=== PATIENT | female | born 1935 | race Caucasian/White ===

== ENCOUNTER 2017-12-06 07:29 | Day surgery (SDC) | payer BC, MEDICARE ==
[2017-12-03 10:50] VITALS: BMI 27.1
--- NOTE | 2017-12-06 05:22 | P.GSHP ---
History of Present Illness H&P Date: 12/06/17 CHIEF COMPLAINT: GERD HISTORY OF PRESENT ILLNESS: The patient is a 82-year-old female who presents reports gastroesophageal reflux disease. Upper endoscopy was offered for further evaluation and management. PAST MEDICAL HISTORY: Please see list. PAST SURGICAL HISTORY: Please see list. MEDICATIONS: Please see list. ALLERGIES: Please see list. SOCIAL HISTORY: No illicit drug use FAMILY HISTORY: No reports of Crohn disease or ulcerative colitis. REVIEW OF ORGAN SYSTEMS: CONSTITUTIONAL: No reports of fevers or chills. GI: Denies any blood in stools or constipation. PHYSICAL EXAM: VITAL SIGNS: Stable GENERAL: Well-developed and pleasant in no acute distress. HEENT: No scleral icterus. Extraocular movements grossly intact. Moist buccal mucosa. NECK: Supple without lymphadenopathy. CHEST: Unlabored respirations. Equal bilateral excursions. CARDIOVASCULAR: Regular rate and rhythm. Distal 2+ pulses. ABDOMEN: Soft, nondistended. MUSCULOSKELETAL: No clubbing, cyanosis, or edema. ASSESSMENT: 1. Gastroesophageal reflux disease PLAN: 1. Recommend proceeding with an upper endoscopy Past Medical History Past Medical History: Atrial Fibrillation, Asthma, GERD/Reflux, Hyperlipidemia, Hypertension Additional Past Medical History / Comment(s): SOB,hiatal hernia,steroid Sep 2017 History of Any Multi-Drug Resistant Organisms: None Reported Past Surgical History: Cholecystectomy, Hernia Repair, Hysterectomy, Joint Replacement, Pacemaker Additional Past Surgical History / Comment(s): hiatal hernia,[employer] Pacemaker left chest,brittany carpel tunnel,breast bx,left total knee,JASMIN left femur, lasik brittany eyes,brittany cataracts,lesion removed from tongue,brittany inguinal hernia repair Past Anesthesia/Blood Transfusion Reactions: No Reported Reaction Type of Cardiac Device: Permanent Pacemaker Device Placement Date:: 2007,battery replaced Smoking Status: Never smoker - Past Family History Mother Family Medical History: Cancer Additional Family Medical History / Comment(s): lymphoma Father Family Medical History: Cancer Additional Family Medical History / Comment(s): bone Sister(s) Family Medical History: Cancer Additional Family Medical History / Comment(s): lung Medications and Allergies Home Medications Medication Instructions Recorded Confirmed Type Aclidinium [place] [Tudorza 1 puff INHALATION QAM 12/03/17 12/03/17 History Pressair] Albuterol Inhaler [Ventolin Hfa 1 - 2 puff INHALATION QID 12/03/17 12/03/17 History Inhaler] Budesonide/Formoterol Fumarate 2 puff INHALATION BID 12/03/17 12/03/17 History [Symbicort 160-4.5 Mcg Inhaler] Calcium Carbonate [Calcium] 600 mg PO BID 12/03/17 12/03/17 History Cyanocobalamin (Vitamin B-12) 1,000 mcg PO DAILY 12/03/17 12/03/17 History [Vitamin B-12] Ezetimibe [Zetia] 10 mg PO HS 12/03/17 12/03/17 History Furosemide [Lasix] 40 mg PO QAM 12/03/17 12/03/17 History Isosorbide Mononitrate [Isosorbide 30 mg PO QAM 12/03/17 12/03/17 History Mononitrate ER] LORazepam [Ativan] 0.5 mg PO BID 12/03/17 12/03/17 History Levothyroxine Sodium [Synthroid] 50 mcg PO QAM 12/03/17 12/03/17 History Magnesium 400 mg PO HS 12/03/17 12/03/17 History Montelukast Sodium [Singulair] 10 mg PO HS 12/03/17 12/03/17 History Omeprazole [PriLOSEC] 20 mg PO BID 12/03/17 12/03/17 History Potassium Chloride [Klor-Con 20] 20 meq PO BID 12/03/17 12/03/17 History Pravastatin Sodium [Pravachol] 40 mg PO HS 12/03/17 12/03/17 History Sertraline HCl [Zoloft] 50 mg PO QAM 12/03/17 12/03/17 History Warfarin Sodium [Coumadin] 5 mg PO DAILY 12/03/17 12/03/17 History amLODIPine [Norvasc] 10 mg PO QAM 12/03/17 12/03/17 History Allergies Allergy/AdvReac Type Severity Reaction Status Date / Time atorvastatin [From Lipitor] Allergy Unknown Verified 12/03/17 10:27 cephalexin [From Keflex] Allergy Unknown Verified 12/03/17 10:27
[~2017-12-06 07:29] MED LIST: LACTATED RINGERS 1,000 ML IV SCH; LIDOCAINE 1% 20 ML VIAL (10MG/ML) FOR IV START INTRADERMA PRN
[2017-12-06 08:04] VITALS: RESP 16; TEMP 97.6
[2017-12-06 08:47] LABS: INR 1.3 (<1.2); Prothrombin Time 12.2 sec (9.0-12.0)
[2017-12-06 09:00] LABS: Anion Gap 10 mmol/L; Blood Urea Nitrogen 17 mg/dL (7-17); Calcium 9.7 mg/dL (8.4-10.2); Carbon Dioxide 26 mmol/L (22-30); Chloride 104 mmol/L (98-107); Glucose 100 mg/dL (74-99); Potassium 3.9 mmol/L (3.5-5.1); Sodium 140 mmol/L (137-145)
[2017-12-06] MEDS ORDERED: PROPOFOL 10 MG/ML 20 ML VIAL IV ONE (09:19)
[2017-12-06] MEDS ORDERED: LIDOCAINE 1% INJ 10MG/ML (20 ML MDV) ONE (09:19)
--- NOTE | 2017-12-06 09:42 | P.PCN ---
Date of Procedure: 12/06/17 Description of Procedure: PREOPERATIVE DIAGNOSIS: Gastroesophageal reflux disease. History of Tawny fundoplasty Chronic cough. Chronic obstructive pulmonary disease POSTOPERATIVE DIAGNOSIS: Gastroesophageal reflux disease. History of Tawny fundoplasty Recurrent diaphragmatic hiatal hernia without obstruction Chronic cough. Chronic obstructive pulmonary disease OPERATION: Esophagogastroduodenoscopy SURGEON: Charu Montes MD ANESTHESIA: MAC. INDICATIONS: The patient is a 82-year-old female who presents with a history of reflux disease. Benefits and risks of the procedure were described. Informed consent was obtained. DESCRIPTION: The patient was brought into the endoscopy suite and laid in the left lateral decubitus position. An Olympus gastroscope was passed along the posterior oropharynx down to the distal esophagus where the squamocolumnar junction was encountered at 36 cm from the incisors. The stomach was entered and bile reflux was found and suctioned from the stomach Additional findings are listed below. The first through third portion of the duodenum was examined and unremarkable. Retroflexion of the scope confirmed Hill grade 2 lower esophageal valve. The squamocolumnar junction demostrated no acute LA grade A erosive esophagitis. The stomach was desufflated. The patient tolerated the procedure well. FINDINGS: Squamocolumnar junction 36 cm from the incisors. Diaphragmatic hiatus, 37 cm from the incisors Recurrent diaphragmatic hiatal hernia, 1 cm. Hill grade 2 lower esophageal valve. No LA grade A erosive esophagitis. No active duodenitis. RECOMMENDATIONS: Recommend esophagram to evaluate for slipped Tawny fundoplasty Will likely need revision of Tawny with manometry Plan - Discharge Summary New Discharge Prescriptions: No Action LORazepam [Ativan] 0.5 mg PO BID Cyanocobalamin (Vitamin B-12) [Vitamin B-12] 1,000 mcg PO DAILY Albuterol Inhaler [Ventolin Hfa Inhaler] 1 - 2 puff INHALATION QID Magnesium 400 mg PO HS Aclidinium [place] [Tudorza Pressair] 1 puff INHALATION QAM Calcium Carbonate [Calcium] 600 mg PO BID Budesonide/Formoterol Fumarate [Symbicort 160-4.5 Mcg Inhaler] 2 puff INHALATION BID Potassium Chloride [Klor-Con 20] 20 meq PO BID Montelukast Sodium [Singulair] 10 mg PO HS Isosorbide Mononitrate [Isosorbide Mononitrate ER] 30 mg PO QAM Furosemide [Lasix] 40 mg PO QAM Omeprazole [PriLOSEC] 20 mg PO BID Warfarin Sodium [Coumadin] 5 mg PO DAILY Pravastatin Sodium [Pravachol] 40 mg PO HS Levothyroxine Sodium [Synthroid] 50 mcg PO QAM Ezetimibe [Zetia] 10 mg PO HS amLODIPine [Norvasc] 10 mg PO QAM Sertraline HCl [Zoloft] 50 mg PO QAM Discharge Medication List Aclidinium [place] [Tudorza Pressair] 1 puff INHALATION QAM 12/03/17 [History] Albuterol Inhaler [Ventolin Hfa Inhaler] 1 - 2 puff INHALATION QID 12/03/17 [ History] Budesonide/Formoterol Fumarate [Symbicort 160-4.5 Mcg Inhaler] 2 puff INHALATION BID 12/03/17 [History] Calcium Carbonate [Calcium] 600 mg PO BID 12/03/17 [History] Cyanocobalamin (Vitamin B-12) [Vitamin B-12] 1,000 mcg PO DAILY 12/03/17 [ History] Ezetimibe [Zetia] 10 mg PO HS 12/03/17 [History] Furosemide [Lasix] 40 mg PO QAM 12/03/17 [History] Isosorbide Mononitrate [Isosorbide Mononitrate ER] 30 mg PO QAM 12/03/17 [ History] LORazepam [Ativan] 0.5 mg PO BID 12/03/17 [History] Levothyroxine Sodium [Synthroid] 50 mcg PO QAM 12/03/17 [History] Magnesium 400 mg PO HS 12/03/17 [History] Montelukast Sodium [Singulair] 10 mg PO HS 12/03/17 [History] Omeprazole [PriLOSEC] 20 mg PO BID 12/03/17 [History] Potassium Chloride [Klor-Con 20] 20 meq PO BID 12/03/17 [History] Pravastatin Sodium [Pravachol] 40 mg PO HS 12/03/17 [History] Sertraline HCl [Zoloft] 50 mg PO QAM 12/03/17 [History] Warfarin Sodium [Coumadin] 5 mg PO DAILY 12/03/17 [History] amLODIPine [Norvasc] 10 mg PO QAM 12/03/17 [History]
[2017-12-06 10:49] VITALS: PULSE 72
[2017-12-06 11:03] VITALS: BP 110/75
== END 2017-12-06 11:50 | disposition home or self-care (01) ==
LOC: ORWHC2ENDO 07:29
PROVIDERS: ATTEND Surgery Plastic and Reconstructive Surgery
DX: K21.9 Gastro-esophageal reflux disease without esophagitis (principal); K44.9 Diaphragmatic hernia without obstruction or gangrene; I45.4 Nonspecific intraventricular block; J44.9 Chronic obstructive pulmonary disease, unspecified; I48.91 Unspecified atrial fibrillation; E78.5 Hyperlipidemia, unspecified; I10 Essential (primary) hypertension; F39 Unspecified mood [affective] disorder; Z95.0 Presence of cardiac pacemaker; Z79.01 Long term (current) use of anticoagulants; Z79.890 Hormone replacement therapy; Z79.51 Long term (current) use of inhaled steroids; Z79.899 Other long term (current) drug therapy; Z88.1 Allergy status to other antibiotic agents; Z88.8 Allergy status to other drugs, medicaments and biological substances
CPT/HCPCS: 93005; 80048; 85610; 43235; J2001; J2704

== ENCOUNTER → 2017-12-06 | Outpatient (CLI) | payer MEDICARE, BC ==
--- NOTE | 2017-12-06 13:54 | FL ---
EXAMINATION TYPE: FL barium swallow DATE OF EXAM: 12/06/2017 CLINICAL HISTORY: Dysphagia for several months with history of prior hiatal hernia repair. TECHNIQUE: A single contrast esophagram is performed with thin barium. A total of 1 minute and 30 s econds of fluoroscopic time was utilized during procedure with 31 images saved. COMPARISON: None FINDINGS: The esophagus shows mildly delayed motility and emptying into the stomach with mild nonoccl usive stricture at the gastroesophageal junction at the site of prior Tawny fundoplasty. Blunted sec ondary waves and tertiary contractions are noted in the gravity dependent and independent portion of the examination most commonly related to presbyesophagus at this patient's age. No evidence of recurr ent hiatal hernia seen. No significant gastroesophageal reflux was seen during real time performance of this study. Moderate intraesophageal reflux was identified. IMPRESSION: 1. Mild stricture at the gastroesophageal junction resulting in delayed motility and emptying into th e stomach. 2. Findings most compatible with presbyesophagus. 3. Moderate intraesophageal reflux.
== END | disposition home or self-care (01) ==
LOC: RADFLMAIN 11:58
PROVIDERS: ATTEND Surgery Plastic and Reconstructive Surgery
DX: K21.9 Gastro-esophageal reflux disease without esophagitis (principal); K22.8 Other specified diseases of esophagus; K22.2 Esophageal obstruction; Z88.1 Allergy status to other antibiotic agents; Z88.8 Allergy status to other drugs, medicaments and biological substances
CPT/HCPCS: 74220

== ENCOUNTER → 2023-08-31 | Outpatient (CLI) | payer MEDICARE | END | disposition home or self-care (01) | LOC: LABWHC1 16:32 | PROVIDERS: ATTEND Orthopaedic Surgery | DX: Z53.9 Procedure and treatment not carried out, unspecified reason (principal) ==

== ENCOUNTER 2023-12-16 14:15 | Observation (INO) | payer MEDICARE ==
--- NOTE | 2023-12-16 14:55 | ED ---
Eye Problem HPI - General Chief complaint: Eye Problems Stated complaint: eye complications - pos blod clot Time Seen by Provider: 12/16/23 14:40 Source: patient, RN notes reviewed Mode of arrival: ambulatory Limitations: no limitations - History of Present Illness Initial comments: 88-year-old female with history of atrial fibrillation on Eliquis, presents to the emergency department with chief complaint of transient right eye vision loss. Was referred by computer trainer for stroke evaluation. states she was playing a game on her IPad yesterday evening when she suddenly experienced a loss of vision in her right eye. Vision loss lasted for approximately 10 minutes and slowly returned currently back to baseline. Patient states she woke up this morning with a bloodshot appearance to her right eye, denies pain with extraocular movement, photophobia, blurred vision, double vision, discharge, trauma. she denies any focal neurological deficits such as blurred speech, weakness, dizziness, headaches. Patient has a history of cataract removal bi laterally and TIA. - Related Data Home Medications Medication Instructions Recorded Confirmed Albuterol Inhaler [Ventolin Hfa 1 - 2 puff INHALATION RT-QID PRN 12/03/17 12/16/23 Inhaler] Ezetimibe [Zetia] 10 mg PO DAILY 12/03/17 12/16/23 Furosemide [Lasix] 40 mg PO DAILY 12/03/17 12/16/23 Levothyroxine Sodium [Synthroid] 50 mcg PO DAILY 12/03/17 12/16/23 Montelukast Sodium [Singulair] 10 mg PO HS 12/03/17 12/16/23 Potassium Chloride [Klor-Con 20] 20 meq PO BID 12/03/17 12/16/23 Pravastatin Sodium [Pravachol] 40 mg PO HS 12/03/17 12/16/23 Sertraline HCl [Zoloft] 50 mg PO DAILY 12/03/17 12/16/23 ALPRAZolam [Xanax] 0.5 mg PO HS 12/16/23 12/16/23 Apixaban [Eliquis] 2.5 mg PO BID 12/16/23 12/16/23 Calcium Carbonate/Vitamin D3 1 tab PO DAILY 12/16/23 12/16/23 [Calcium 500 mg-Vit D3 5 mcg (200 Unit)] Donepezil [Aricept] 5 mg PO HS 12/16/23 12/16/23 Famotidine [Pepcid] 20 mg PO HS 12/16/23 12/16/23 Ferrous Sulfate [Feosol] 650 mg PO HS 12/16/23 12/16/23 Fluticasone Nasal [place] [Flonase 1 spray EA NOSTRIL BID 12/16/23 12/16/23 Nasal [place]] Fluticasone Propion/Salmeterol 1 puff INHALATION RT-BID 12/16/23 12/16/23 [Wixela 250-50 Inhub] Losartan [Cozaar] 25 mg PO DAILY 12/16/23 12/16/23 Magnesium Oxide [Mag-Ox] 250 mg PO BID 12/16/23 12/16/23 Metoprolol Succinate (ER) [Toprol 50 mg PO DAILY 12/16/23 12/16/23 Xl] Spironolactone [Aldactone] 12.5 mg PO DAILY 12/16/23 12/16/23 Ubidecarenone [Coenzyme Q10] 100 mg PO DAILY 12/16/23 12/16/23 Zolpidem [Ambien] 10 mg PO HS PRN 12/16/23 12/16/23 Allergies Allergy/AdvReac Type Severity Reaction Status Date / Time atorvastatin [From Lipitor] Allergy Unknown Verified 12/16/23 16:52 cephalexin [From Keflex] Allergy Unknown Verified 12/16/23 16:52 Review of Systems ROS Statement: Those systems with pertinent positive or pertinent negative responses have been documented in the HPI. ROS Other: All systems not noted in ROS Statement are negative. Past Medical History Past Medical History: Atrial Fibrillation, Asthma, GERD/Reflux, Hyperlipidemia, Hypertension Additional Past Medical History / Comment(s): SOB,hiatal hernia,steroid Sep 2017 History of Any Multi-Drug Resistant Organisms: None Reported Past Surgical History: Cholecystectomy, Hernia Repair, Hysterectomy, Joint Replacement, Pacemaker Additional Past Surgical History / Comment(s): hiatal hernia,[employer] [employer] Pacemaker left chest,brittany carpel tunnel,breast bx,left total knee,JASMIN left femur,lasik brittany eyes,brittany cataracts,lesion removed from tongue,brittany inguinal hernia repair Past Anesthesia/Blood Transfusion Reactions: No Reported Reaction Type of Cardiac Device: Permanent Pacemaker Device Placement Date:: 2007,battery replaced Past Psychological History: No Psychological Hx Reported Smoking Status: Never smoker Past Alcohol Use History: Occasional Past Drug Use History: None Reported - Past Family History Mother Family Medical History: Cancer Additional Family Medical History / Comment(s): lymphoma Father Family Medical History: Cancer Additional Family Medical History / Comment(s): bone Sister(s) Family Medical History: Cancer Additional Family Medical History / Comment(s): lung General Exam Limitations: no limitations General appearance: alert, in no apparent distress Head exam: Present: atraumatic, normocephalic, normal inspection Expanded Eyelids: Normal Inspection: Bilateral Pupils: Regular, Round: Bilateral Sclera/Conjunctival: Normal Inspection: Left, Hemorrhage: Right ENT exam: Present: normal exam, mucous membranes moist Neck exam: Present: normal inspection. Absent: tenderness, meningismus, lymphadenopathy Respiratory exam: Present: normal lung sounds bilaterally. Absent: respiratory distress, wheezes, rales, rhonchi, stridor Cardiovascular Exam: Present: regular rate, normal rhythm, normal heart sounds. Absent: systolic murmur, diastolic murmur, rubs, gallop, clicks GI/Abdominal exam: Present: soft, normal bowel sounds. Absent: distended, tenderness, guarding, rebound, rigid Extremities exam: Present: normal inspection, full ROM, normal capillary refill. Absent: tenderness, pedal edema, joint swelling, calf tenderness Back exam: Present: normal inspection Neurological exam: Present: alert, oriented X3, CN II-XII intact, other (Patient 's NIH stroke scale 0, no signs of acute cerebellar ataxia.) Psychiatric exam: Present: normal affect, normal mood Skin exam: Present: warm, dry, intact, normal color. Absent: rash Course Vital Signs 12/16/23 12/16/23 12/16/23 14:20 16:51 18:00 Temperature 98.3 F Pulse Rate 66 73 72 Pulse Rate [ Pulse Oximetery ] Respiratory 18 18 18 Rate Blood Pressure 108/60 159/90 158/78 Blood Pressure [Right Arm] O2 Sat by Pulse 94 L 96 99 Oximetry 12/16/23 12/16/23 20:50 22:34 Temperature 97.6 F Pulse Rate 70 Pulse Rate [ 70 Pulse Oximetery ] Respiratory 16 18 Rate Blood Pressure 127/75 Blood Pressure 151/71 [Right Arm] O2 Sat by Pulse 97 97 Oximetry Medical Decision Making - Medical Decision Making Was pt. sent in by a medical professional or institution (ANA MARIA Lee, TRANSPORTATION DIRECTOR, urgent care, hospital, or half-way...) When possible be specific @ -No Did you speak to anyone other than the patient for history (EMS, parent, family, police, friend...)? What history was obtained from this source @ -No Did you review nursing and triage notes (agree or disagree)? Why? @ -I reviewed and agree with nursing and triage notes Were old charts reviewed (outside hosp., previous admission, EMS record, old EKG, old radiological studies, urgent care reports/EKG's, half-way records)? Report findings @ -No old charts were reviewed Differential Diagnosis (chest pain, altered mental status, abdominal pain women, abdominal pain men, vaginal bleeding, weakness, fever, dyspnea, syncope, headache, dizziness, GI bleed, back pain, seizure, CVA, palpatations, mental health, musculoskeletal)? @ -differential: Transient ischemic attack, acute vision loss, angle-closure gla ucoma, angle-closure glaucoma, retinal detachment, EKG interpreted by me (3pts min.). @ -None X-rays interpreted by me (1pt min.). @ -None done CT interpreted by me (1pt min.). @ -CT noncontrast reveals no acute intracranial pathology, no signs of acute hemorrhagic changes. U/S interpreted by me (1pt. min.). @ -None done What testing was considered but not performed or refused? (CT, X-rays, U/S, labs)? Why? @ -None What meds were considered but not given or refused? Why? @ -None Did you discuss the management of the patient with other professionals (professionals i.e. , ANA MARIA, TRANSPORTATION DIRECTOR, lab, RT, psych nurse, social worker delinquency prevention, crop grain or livestock farm manager, teacher, parole hearing officer, case aide)? Give summary @ -spoke with Dr. Caldera, Dr. Caldera, and his inpatient admission for further evaluation of potential stroke. Requested orders of CT angiography of the head and neck, echocardiogram, lipid panel, thyroid function testing, ESR, CRP and A1c. Was smoking cessation discussed for >3mins.? @ -No Was critical care preformed (if so, how long)? @ -No Were there social determinants of health that impacted care today? How? (Homelessness, low income, unemployed, alcoholism, drug addiction, transportation, low edu. Level, literacy, decrease access to med. care, senior care, rehab)? @ -No Was there de-escalation of care discussed even if they declined (Discuss DNR or withdrawal of care, Hospice)? DNR status @ -No What co-morbidities impacted this encounter? (DM, HTN, Smoking, COPD, CAD, Cancer, CVA, ARF, Chemo, Hep., AIDS, mental health diagnosis, sleep apnea, morbid obesity)? @ -None Was patient admitted / discharged? Hospital course, mention meds given and route, prescriptions, significant lab abnormalities, going to OR and other pertinent info. @ -88-year-old female with chief complaint of transient right eye vision loss. Detailed report from [facility] and acuity 2019 in left eye, 2024 and right eye dilated bilateral eye examination with no acute findings. the brain without contrast no acute signs of hemorrhage., No electrolyte abnormalities found on CMP, CBC without leukocytosis, anemia Attending, Dr. Scott, recommended neurology consultation due to patient's acute symptoms yesterday. It is recommended for admission for stroke workup. general medicine accepts with neurology on board. Undiagnosed new problem with uncertain prognosis? @ -No Drug Therapy requiring intensive monitoring for toxicity (Heparin, Nitro, Insulin, Cardizem)? @ -No Were any procedures done? @ -No Diagnosis/symptom? @ -monocular vision loss, subconjunctival hemorrhage Acute, or Chronic, or Acute on Chronic? @ -Acute Uncomplicated (without systemic symptoms) or Complicated (systemic symptoms)? @ -Complicated Side effects of treatment? @ -No Exacerbation, Progression, or Severe Exacerbation? @ -No Poses a threat to life or bodily function? How? (Chest pain, USA, NM, pneumonia, PE, COPD, DKA, ARF, appy, cholecystitis, CVA, Diverticulitis, Homicidal, Suicidal, threat to staff... and all critical care pts) @ -Yes, undiagnosed stroke can lead to permanent neurological damage creased quality of life. - Lab Data Result diagrams: 12/16/23 15:20 12/16/23 15:20 Lab Results 12/16/23 12/16/23 12/16/23 Range/Units 15:20 15:20 15:20 WBC 6.0 (3.8-10.6) k/uL RBC 4.11 (3.80-5.40) m/uL Hgb 13.2 (11.4-16.0) gm/dL Hct 40.0 (34.0-46.0) % MCV 97.3 (80.0-100.0) fL MCH 32.1 (25.0-35.0) pg MCHC 33.0 (31.0-37.0) g/dL RDW 14.4 (11.5-15.5) % Plt Count 152 (150-450) k/uL MPV 8.1 Neutrophils % 72 % Lymphocytes % 15 % Monocytes % 5 % Eosinophils % 5 % Basophils % 1 % Neutrophils # 4.4 (1.3-7.7) k/uL Lymphocytes # 0.9 L (1.0-4.8) k/uL Monocytes # 0.3 (0-1.0) k/uL Eosinophils # 0.3 (0-0.7) k/uL Basophils # 0.1 (0-0.2) k/uL ESR (0-30) mm/Hr PT 11.9 (10.0-12.5) sec INR 1.1 (<1.2) Sodium 139 (137-145) mmol/L Potassium 5.1 (3.5-5.1) mmol/L Chloride 106 (98-107) mmol/L Carbon Dioxide 23 (22-30) mmol/L Anion Gap 10 mmol/L BUN 28 H (7-17) mg/dL Creatinine 0.69 (0.52-1.04) mg/dL Est GFR (CKD-EPI)AfAm >90 (>60 ml/min/1.73 sqM) Est GFR (CKD-EPI)NonAf 79 (>60 ml/min/1.73 sqM) Glucose 91 (74-99) mg/dL Estimated Ave Glu mg/dL mg/dL Hemoglobin A1c (<=6.0) % Calcium 9.2 (8.4-10.2) mg/dL Total Bilirubin 1.5 H (0.2-1.3) mg/dL AST 70 H (14-36) U/L ALT 29 (4-34) U/L Alkaline Phosphatase 34 L (38-126) U/L C-Reactive Protein (<1.0) mg/dL Total Protein 8.1 (6.3-8.2) g/dL Albumin 4.3 (3.5-5.0) g/dL Triglycerides (0.00-149.00) mg/dL Cholesterol (0.00-200.00) mg/dL LDL Cholesterol, Calc (0.0-131.0) mg/dL VLDL Cholesterol, Calc (5.00-40.00) mg/dL HDL Cholesterol (40.00-60.00) mg/dL Cholesterol/HDL Ratio Ratio TSH (0.465-4.680) mIU/L 12/16/23 12/16/23 12/16/23 Range/Units 16:33 16:33 16:33 WBC (3.8-10.6) k/uL RBC (3.80-5.40) m/uL Hgb (11.4-16.0) gm/dL Hct (34.0-46.0) % MCV (80.0-100.0) fL MCH (25.0-35.0) pg MCHC (31.0-37.0) g/dL RDW (11.5-15.5) % Plt Count (150-450) k/uL MPV Neutrophils % % Lymphocytes % % Monocytes % % Eosinophils % % Basophils % % Neutrophils # (1.3-7.7) k/uL Lymphocytes # (1.0-4.8) k/uL Monocytes # (0-1.0) k/uL Eosinophils # (0-0.7) k/uL Basophils # (0-0.2) k/uL ESR 22 (0-30) mm/Hr PT (10.0-12.5) sec INR (<1.2) Sodium (137-145) mmol/L Potassium (3.5-5.1) mmol/L Chloride (98-107) mmol/L Carbon Dioxide (22-30) mmol/L Anion Gap mmol/L BUN (7-17) mg/dL Creatinine (0.52-1.04) mg/dL Est GFR (CKD-EPI)AfAm (>60 ml/min/1.73 sqM) Est GFR (CKD-EPI)NonAf (>60 ml/min/1.73 sqM) Glucose (74-99) mg/dL Estimated Ave Glu mg/dL 103 mg/dL Hemoglobin A1c 5.2 (<=6.0) % Calcium (8.4-10.2) mg/dL Total Bilirubin (0.2-1.3) mg/dL AST (14-36) U/L ALT (4-34) U/L Alkaline Phosphatase (38-126) U/L C-Reactive Protein 1.2 H (<1.0) mg/dL Total Protein (6.3-8.2) g/dL Albumin (3.5-5.0) g/dL Triglycerides 79.40 (0.00-149.00) mg/dL Cholesterol 142.00 (0.00-200.00) mg/dL LDL Cholesterol, Calc 71.9 (0.0-131.0) mg/dL VLDL Cholesterol, Calc 15.88 (5.00-40.00) mg/dL HDL Cholesterol 54.20 (40.00-60.00) mg/dL Cholesterol/HDL Ratio 2.62 Ratio TSH 1.870 (0.465-4.680) mIU/L Disposition Clinical Impression: Vision loss of right eye, Subconjunctival hemorrhage Disposition: ADMITTED IP TO THIS [facility] Condition: Good Is patient prescribed a controlled substance at d/c from ED?: No Decision to Admit Reason: Admit from EC Decision Time: 16:40
--- NOTE | 2023-12-16 15:30 | CT ---
EXAMINATION TYPE: CT brain wo con CT DLP: 1063.4 mGycm, Automated exposure control for dose reduction was used. DATE OF EXAM: 12/16/2023 3:06 PM COMPARISON: none. CLINICAL INDICATION:Female, 88 years old with history of brief loss of vision in right eye, Right eye vision loss and eye redness. TECHNIQUE: Brain: Axial CT images of the brain were obtained with coronal and sagittal reformats created and rev iewed. Contrast used: None. Oral contrast used: None. FINDINGS: Brain: Extra-axial spaces: No abnormal extra-axial fluid collections. Ventricular system: Dilatation in proportion to cerebral atrophy. Cerebral parenchyma: Cerebral atrophy. No acute intraparenchymal hemorrhage or mass effect. The anderson -white junction is well differentiated. Scattered hypoattenuating areas are seen within the white mat ter. Cerebellum: Unremarkable. Mass effect: No evidence of midline shift. Intracranial vasculature: Atherosclerotic calcifications of the intracranial vessels. Soft tissues: Normal. Calvarium/osseous structures: No depressed skull fracture. Paranasal sinuses and mastoid air cells: Mild scattered paranasal sinus disease. Visualized orbits: Orbital contents are intact. IMPRESSION: 1. No acute intracranial process. 2. Nonspecific white matter changes, likely secondary to chronic small vessel ischemic disease.
[2023-12-16 15:40] LABS: INR 1.1 (<1.2); Prothrombin Time 11.9 sec (10.0-12.5)
[2023-12-16 15:46] LABS: ALT 29 U/L (4-34); African American GFR (CKD) >90 (>60 ml/min/1.73 sqM); Anion Gap 10 mmol/L; Blood Urea Nitrogen 28 mg/dL (7-17); Calcium 9.2 mg/dL (8.4-10.2); Carbon Dioxide 23 mmol/L (22-30); Chloride 106 mmol/L (98-107); Glucose 91 mg/dL (74-99); Non-African American GFR(CKD) 79 (>60 ml/min/1.73 sqM); Sodium 139 mmol/L (137-145); Total Bilirubin 1.5 mg/dL (0.2-1.3)
[2023-12-16 15:48] LABS: Basophils # (A) 0.1 k/uL (0-0.2); Basophils % (A) 1 %; Eosinophils # (A) 0.3 k/uL (0-0.7); Eosinophils % (A) 5 %; HGB 13.2 gm/dL (11.4-16.0); Lymphocytes # (A) 0.9 k/uL (1.0-4.8); Lymphocytes % (A) 15 %; MCH 32.1 pg (25.0-35.0); MCV 97.3 fL (80.0-100.0); Mean Platelet Volume 8.1; Monocytes # (A) 0.3 k/uL (0-1.0); Monocytes % (A) 5 %; Neutrophils # (A) 4.4 k/uL (1.3-7.7); Neutrophils % (A) 72 %; Platelet Count 152 k/uL (150-450); RBC 4.11 m/uL (3.80-5.40); RDW 14.4 % (11.5-15.5)
[2023-12-16 15:51] LABS: AST 70 U/L (14-36); Albumin 4.3 g/dL (3.5-5.0); Alkaline Phosphatase 34 U/L (38-126); Potassium 5.1 mmol/L (3.5-5.1); Total Protein 8.1 g/dL (6.3-8.2)
[2023-12-16] MEDS ORDERED: IBUPROFEN 400 MG TAB PO PRN (16:36)
[2023-12-16] MEDS ORDERED: ACETAMINOPHEN TAB 325 MG TAB PO PRN (16:36)
[2023-12-16] MEDS ORDERED: NALOXONE 0.4 MG/ML 1 ML VIAL IV PRN (16:36)
[2023-12-16 17:09] LABS: C Reactive Protein 1.2 mg/dL (<1.0)
--- NOTE | 2023-12-16 18:16 | CT ---
EXAMINATION TYPE: CT angio head neck DATE OF EXAM: 12/16/2023 COMPARISON: CT brain same day HISTORY: 88-year-old female transient monocular vision loss TECHNIQUE: Contiguous axial scanning of the head and neck performed with IV Contrast, patient injecte d with 65 mL of Isovue 370. Coronal and sagittal reconstructions performed. 3-D reconstructions gener ated on a dedicated independent workstation. CT DLP: 345.8 mGycm Automated exposure control for dose reduction was used. FINDINGS: Neck: Advanced artifact arising anatomy. Mild atherosclerotic calcifications at the origin of the bilateral vertebral arteries. There is sever e focal stenosis of the petrous segment left vertebral artery at the level of the C2 foramen transver sarium. The V3 segment shows early takeoff of the left PICA. The left vertebral artery subsequently b ecomes hypoplastic. Otherwise, vertebral arteries are patent throughout their course and codominant. Retropharyngeal course of the upper common carotid artery and bilateral carotid bifurcation as well a s the proximal ICA. There is mild atherosclerotic calcification of the bilateral carotid bifurcations. On the right, results in mild, 25% proximal ICA stenosis. Remainder of the right ICA is patent. On the left, mild, 30% stenosis at the origin of the ICA and moderate, 50% stenosis in the left ICA j ust above the level of the carotid bulb. NASCET criteria was utilized. Head: The V4 segment left vertebral artery is hypoplastic. Both vertebral and basilar arteries are otherwis e patent. Hypoplastic A1 segment right posterior cerebral artery with persistent origin right ENERGY PROJECT ENGINEER. The po sterior cerebral arteries are otherwise patent. Mild atherosclerotic calcifications throughout the bilateral carotid siphons. Mild to moderate focal narrowing supraclinoid left ICA. Anterior circulation otherwise been without significant stenosis. No aneurysmal change is seen. IMPRESSION: NECK: 1. RETROPHARYNGEAL COURSE OF THE CAROTID BIFURCATIONS AND PROXIMAL ICA's. 2. Moderate, 50% stenosis left ICA just above the carotid bulb. 30% stenosis at the left ICA origin. 3. Mild, 25% proximal right ICA stenosis. 4. Severe focal stenosis V2 segment upper left vertebral artery. Subsequent early takeoff of the left PICA from the V3 segment. Head: 4. No large vessel intracranial arterial occlusion, significant stenosis, or aneurysmal change is see n. 5. Anatomic variation with a hypoplastic V4 segment left vertebral artery and persistent origin right ENERGY PROJECT ENGINEER.
[2023-12-16] MEDS ORDERED: ZOLPIDEM 5 MG TAB PO PRN (23:10)
[2023-12-16] MEDS: MONTELUKAST 10 MG TAB PO SCH (23:53)
[2023-12-16] MEDS: MAGNESIUM OXIDE 400 MG TAB PO SCH (23:53)
[2023-12-16] MEDS: FAMOTIDINE 20 MG TAB PO SCH (23:53)
[2023-12-16] MEDS: FERROUS SULFATE 325 MG TAB PO SCH (23:53)
[2023-12-16] MEDS: DONEPEZIL 5 MG TAB PO SCH (23:54)
[2023-12-16] MEDS: APIXABAN 2.5 MG TABLET PO SCH (23:54)
[2023-12-16] MEDS: PRAVASTATIN SODIUM 40 MG TAB PO SCH (23:54)
[2023-12-16] MEDS: POTASSIUM CHLORIDE ER 20 MEQ TAB.ER PO SCH (23:54)
[2023-12-16] MEDS: FLUTICASONE 50MCG/SPRAY NASAL 16GM EA NOSTRIL PRN (23:55)
[2023-12-17] MEDS: ALPRAZolam 0.5 MG TAB PO SCH
[2023-12-17 04:26] LABS: Chol/HDL Ratio 2.62 Ratio; LDL Cholesterol,Calculated 71.9 mg/dL (0.0-131.0); VLDL Calculation 15.88 mg/dL (5.00-40.00)
[2023-12-17] MEDS: SYMBICORT 80-4.5 MCG INHALER INHALATION SCH (08:17)
[2023-12-17] MEDS: ASPIRIN 81 MG PO SCH (10:40)
--- NOTE | 2023-12-17 11:07 | P.CNNES ---
History of Present Illness Consult date: 12/17/23 Requesting physician: Clarissa Reza Reason for Consult: monocular vision loss History of Present Illness: This is an 88-year-old woman who presents because of transient right vision loss. It seems the patient was referred by her Counter Weigher for stroke evaluation. She stated that the she was playing on her iPad at 4 PM and all of a sudden she noticed her vision on the right eye became black and slowly her vision improved the whole episode lasted for 10 minutes. Then a few hours later she was accompanied with family and her right eye was a red. She denies any headache associated with this, nausea vomiting, denies any focal weakness, numbness, any difficulty getting words out. Denies any trauma to the eye. She was evaluated by her Counter Weigher yesterday Dr. mccrary and the was notified to come to the hospital for further evaluation. According to the patient she was notified by her Counter Weigher that he felt there is a clot in the back of the right eye. She stated that about 6 weeks ago her left eye was also bloodshot read never had the visual loss on the left eye. She stated that she has history of underlying A. fib and she is on Eliquis 2.5 mg twice a day. She is compliant taking her medication. Patient states that she has A. fib and she cannot obtain the MRI. She did state that she has bilateral cataract surgeries bilaterally. Ration denies any history of stroke to me. But per the ED note seems that the patient has underlying history of TIA but she denied that. There is paperwork from her clinical reimbursement specialist and it's states supple contactable hemorrhage bilaterally. He stated that has occurred previously. Also states chronic narrow angle glaucoma bilaterally. Also of note the patient states she has chronic ongoing numbness in the cold sensation of her bilateral feet. Some of the workup during his hospital visit consisted of: ESR is 22 CRP is 1.2 Hemoglobin A1c is 5.2 TSH is 1.87 Lipid panel is a triglyceride 79, cholesterol is 142, LDL 71 and HDL is [address] of the head is reported as no acute intracranial process. Nonspecific white matter changes, likely secondary due to chronic small vessel ischemic disease. I personally reviewed the CT of the head and I agree there is no acute or subacute stroke. CT angiography of the head is reported as no large vessel intracranial artery oc clusion, significant stenosis or aneurysm changes seen. Anatomic variation with hypoplastic V4 segment left vertebral artery and persistent origin right CHANGE ADVISOR CT angiography of the neck is reported as retropharyngeal course of the carotid bifurcation and proximal ICAs. Moderate 50% stenosis left ICA just above the carotid bulb. 30% stenosis of the left ICA origin. Mild, 25 proximal right ICA stenosis. Severe focal stenosis at V2 segment upper left vertebral artery. Subsequent early takeoff of the left pica from the V3 segment. Review of Systems Review of system: The 12 point system was reviewed and apparent positive and negative per HPI. Past Medical History Past Medical History: Atrial Fibrillation, Asthma, GERD/Reflux, Hyperlipidemia, Hypertension Additional Past Medical History / Comment(s): SOB,hiatal hernia,steroid Sep 2017, cateracts bilat History of Any Multi-Drug Resistant Organisms: None Reported Past Surgical History: Adenoidectomy, Cholecystectomy, Hernia Repair, Hysterectomy, Joint Replacement, Pacemaker, Tonsillectomy Additional Past Surgical History / Comment(s): hiatal hernia,[employer] Pacemaker left chest,brittany carpel tunnel,breast bx,left total knee,JASMIN left fe mur,lasik brittany eyes,brittany cataracts,lesion removed from tongue,brittany inguinal hernia repair Past Anesthesia/Blood Transfusion Reactions: No Reported Reaction Type of Cardiac Device: Permanent Pacemaker Device Placement Date:: 2007,battery replaced Past Psychological History: No Psychological Hx Reported Smoking Status: Never smoker Past Alcohol Use History: Occasional Past Drug Use History: None Reported - Past Family History Mother Family Medical History: Cancer Additional Family Medical History / Comment(s): lymphoma Father Family Medical History: Cancer Additional Family Medical History / Comment(s): bone Sister(s) Family Medical History: Cancer Additional Family Medical History / Comment(s): lung Medications and Allergies Home Medications Medication Instructions Recorded Confirmed Type Albuterol Inhaler [Ventolin Hfa 1 - 2 puff INHALATION RT-QID PRN 12/03/1712/02 History Inhaler] Ezetimibe [Zetia] 10 mg PO DAILY 12/03/17 12/16/23 History Furosemide [Lasix] 40 mg PO DAILY 12/03/17 12/16/23 History Levothyroxine Sodium [Synthroid] 50 mcg PO DAILY 12/03/17 12/16/23 History Montelukast Sodium [Singulair] 10 mg PO HS 12/03/17 12/16/23 History Potassium Chloride [Klor-Con 20] 20 meq PO BID 12/03/17 12/16/23 History Pravastatin Sodium [Pravachol] 40 mg PO HS 12/03/17 12/16/23 History Sertraline HCl [Zoloft] 50 mg PO DAILY 12/03/17 12/16/23 History ALPRAZolam [Xanax] 0.5 mg PO HS 12/16/23 12/16/23 History Apixaban [Eliquis] 2.5 mg PO BID 12/16/23 12/16/23 History Calcium Carbonate/Vitamin D3 1 tab PO DAILY 12/16/23 12/16/23 History [Calcium 500 mg-Vit D3 5 mcg (200 Unit)] Donepezil [Aricept] 5 mg PO HS 12/16/23 12/16/23 History Famotidine [Pepcid] 20 mg PO HS 12/16/23 12/16/23 History Ferrous Sulfate [Feosol] 650 mg PO HS 12/16/23 12/16/23 History Fluticasone Nasal [place] [Flonase 1 spray EA NOSTRIL BID 12/16/23 12/16/23 History Nasal [place]] Fluticasone Propion/Salmeterol 1 puff INHALATION RT-BID 12/16/23 12/16/23 History [Wixela 250-50 Inhub] Losartan [Cozaar] 25 mg PO DAILY 12/16/23 12/16/23 History Magnesium Oxide [Mag-Ox] 250 mg PO BID 12/16/23 12/16/23 History Metoprolol Succinate (ER) [Toprol 50 mg PO DAILY 12/16/23 12/16/23 History Xl] Spironolactone [Aldactone] 12.5 mg PO DAILY 12/16/23 12/16/23 History Ubidecarenone [Coenzyme Q10] 100 mg PO DAILY 12/16/23 12/16/23 History Zolpidem [Ambien] 10 mg PO HS PRN 12/16/23 12/16/23 History Allergies Allergy/AdvReac Type Severity Reaction Status Date / Time atorvastatin [From Lipitor] Allergy Unknown Verified 12/16/23 16:52 cephalexin [From Keflex] Allergy Unknown Verified 12/16/23 16:52 Physical Examination - Vital Signs Vital Signs: Vital Signs Temp Pulse Pulse Resp BP BP Pulse Ox 12/17/23 07:35 97.4 F L 70 17 148/82 96 12/17/23 01:41 97.5 F L 68 16 107/61 95 12/16/23 22:34 97.6 F 70 18 151/71 97 12/16/23 20:50 70 16 127/75 97 12/16/23 18:00 72 18 158/78 99 12/16/23 16:51 73 18 159/90 96 12/16/23 14:20 98.3 F 66 18 108/60 94 L Intake and Output 12/16/23 12/17/23 12/17/23 22:59 06:59 14:59 Intake Total 236 Balance 236 Intake: Oral 236 Other: # Voids 1 2 Weight 57.606 kg GENERAL: The patient is lying in bed and is not in acute distress. NEUROLOGICAL: Higher mental function: The patient is awake, alert, oriented to self, place and time. Patient is following commands. No aphasia and no neglect. Cranial nerves: The pupils are round, equal and reactive to light. The sclera is red on right lateral aspect and medial low nasal (per patient improving compared to initial). Visual [place] are full to confrontation throughout. Extraocular movement is intact no nystagmus is noted. Facial sensation is normal to touch throughout. The facial strength is normal throughout. Hearing is mildly decreasedl bilaterally to hand rub. Tongue is midline and moved [id number] without any difficulty. No dysarthria is noted. Shoulder shrug is normal bilaterally. Motor: The strength is 5 over 5 throughout. Normal tone and bulk. Cerebellum: Normal finger to nose bilaterally. Sensation: Sensation is normal to touch throughout. Reflexes (right/left): Ankles are 1+ bilaterally. Otherwise 2+ throughout. Plantars are downgoing bilaterally. Results - Laboratory Findings CBC and BMP: 12/16/23 15:20 12/16/23 15:20 Abnormal Lab Findings: Abnormal Labs 12/16/23 12/16/23 12/16/23 15:20 15:20 16:33 Lymphocytes # 0.9 L BUN 28 H Total Bilirubin 1.5 H AST 70 H Alkaline Phosphatase 34 L C-Reactive Protein 1.2 H Assessment and Plan Assessment: This is an 88-year-old woman with history of A. fib on eliquis s/p pacemaker, b/l cataract surgery who presents because this past Wednesday she had the sudden onset right visual loss in the afternoon lasting for 10 minutes then a few hours later she noticed her right eye it was read. 6 weeks ago she had an episode in which she felt the left eye was also read in discoloration but denies any visual loss. Patient denies of any headache focal deficits. She was evaluated by her route delivery driver who felt she has supple contactable hemorrhage and wanted further evaluation to rule out stroke. Amaurosis fugax of right eye then follow by redness of eye: Has subconjuctival hemorrhage: Unsure exact etiology is truly due to stroke vs purely eye issue Severe focal sensosis of V2 on CTA Has history of left subconjuctival hemorrhage History of bilateral cataract surgery bilaterally History of bilateral chronic narrow angle glaucoma History of atrial fibrillation on eliquis s/p pacemaker Plan: Patient is resumed on her home dose of Eliquis 2.5 mg bid daily. In addition I added aspirin 81 mg daily. Patient is ALLERGIC to atorvastatin. Patient is placed on pravastatin 40 mg daily at bedtime by the primary team Cannot obtain MRI since has pacemaker and saw compatible Get a repeat CT of the head tomorrow 2-D echo is ordered pending Continue neuro checks Cardiac monitoring Patient states that she's having ongoing chronic numbness of her lower extremity and feels its cold I recommended an EMG with nerve conduction study as an outpatient for further evaluation and to follow up with a neurologist as outpatient. Also consider arterial and possible venous duplex of the lower extremity but will defer that to the primary team. We'll defer the rest of the medical management the primary team For DVT prophylaxis she is on Eliquis Upon discharge recommend that patient follow up with her clinical reimbursement specialist as well as follow up with a neurologist as an outpatient within 1-2 weeks. The plan is discussed with patient and her nurse. Thank you for the consultation. Time with Patient: Greater than 30
[2023-12-17] MEDS ORDERED: ALBUTEROL NEBULIZED 2.5 MG/3 ML INHALATION PRN (11:09)
--- NOTE | 2023-12-17 11:20 | CA ---
Transthoracic Echo Report Name: Annmarie Patiño Age: 88 Gender: F : 1935 Exam Date: 12/16/2023 17:18 Exam Location: [place] [facility] Ht (in): 64 Wt (lb): 127 Ordering Physician: Clarissa Reza Attending/Referring Phys: Chemical Strength Tester My English RDCS Procedure CPT: Indications: transient monocular vision loss Cardiac Hx: Pacemaker, MV clip Technical Quality: Good Contrast 1: Total Dose (mL): Contrast 2: Total Dose (mL): MEASUREMENTS (Male / Female) Normal Values 2D ECHO LV Diastolic Diameter PLAX 4.4 cm 4.2 - 5.9 / 3.9 - 5.3 cm LV Systolic Diameter PLAX 3.3 cm IVS Diastolic Thickness 1.4 cm 0.6 - 1.0 / 0.6 - 0.9 cm LVPW Diastolic Thickness 1.2 cm 0.6 - 1.0 / 0.6 - 0.9 cm LV Relative Wall Thickness 0.6 RV Internal Dim ED PLAX 3.4 cm LA Systolic Diameter LX 4.7 cm 3.0 - 4.0 / 2.7 - 3.8 cm LV Diastolic Volume MOD BP 75.4 cm??? 67 - 155 / 56 - 104 cm??? LV Systolic Volume MOD BP 30.1 cm??? - / 19 - 49 cm??? LV Ejection Fraction MOD BP 60.1 % >= 55 % LV Cardiac Index MOD BP 2214.7 cm???/min???m??? LV Diastolic Volume MOD 4C 62.9 cm??? LV Systolic Volume MOD 4C 31.3 cm??? LV Ejection Fraction MOD 4C 50.3 % LV Cardiac Index MOD 4C 1547.1 cm???/min???m??? LV Diastolic Length 4C 6.9 cm LV Systolic Length 4C 5.9 cm LV Diastolic Volume MOD 2C 88.2 cm??? LV Systolic Volume MOD 2C 26.8 cm??? LV Ejection Fraction MOD 2C 69.6 % LV Cardiac Index MOD 2C 3002.9 cm???/min???m??? LV Diastolic Length 2C 6.5 cm LV Systolic Length 2C 5.4 cm LA Volume 136.5 cm??? 18 - 58 / 22 - 52 cm??? LA Volume Index 84.5 cm???/m??? 16 - 28 cm???/m??? M-MODE Aortic Root Diameter MM 2.7 cm DOPPLER AV Peak Velocity 218.9 cm/s AV Peak Gradient 19.2 mmHg AV Mean Velocity 146.3 cm/s AV Mean Gradient 9.7 mmHg AV Velocity Time Integral 43.9 cm AI Peak Velocity 419.5 cm/s AI Peak Gradient 70.4 mmHg AI Pressure Half Time 616.0 ms MV Area PHT 1.8 cm??? MV Deceleration Time 415.6 ms TR Peak Velocity 395.2 cm/s TR Peak Gradient 62.5 mmHg Right Ventricular Systolic Press 67.5 mmHg FINDINGS Left Ventricle Left ventricular ejection fraction is estimated at 50-55 %. Left ventricular cavity size normal. Moderately increased septal wall thickness. Mildly increased posterior wall thickness. Right Ventricle Mild right ventricular dilatation. Severe pulmonary hypertension. Right ventricular systolic pressure estimated at 68 mm hg. Right Atrium Severe right atrial dilatation. Left Atrium Moderately increased left atrial diameter. Severely increased left atrial volume. Moderately increased left atrial area. Mitral Valve MV clip. Thickening of MV. Mild mitral annular calcification. MV stenosis. Moderate mitral regurgitation. Aortic Valve Mild aortic stenosis with a peak gradient of 19 mmHg and a mean gradient of 10 mmHg. Mild aortic regurgitation. Tricuspid Valve Structurally normal tricuspid valve. [id number] tricuspid regurgitation. Pulmonic Valve Structurally normal pulmonic valve. Mild pulmonic regurgitation. Pericardium No pericardial effusion. Aorta Normal size aortic root and proximal ascending aorta. CONCLUSIONS Normal LV systolic function Thickened mitral valve leaflets. Moderate mitral regurgitation. Severe pulmonary hypertension. The pulmonary artery systolic pressure 68 mmHg Mildly dilated right ventricle with normal function Poorly visualized aortic valve. Possible transcatheter valve with acceptable gradient Moderate to severe tricuspid regurgitation Pacer wire was seen in the right atrium and right ventricle Severe biatrial enlargement Previewed by: Dr. Theo Ochoa MD (Electronically Signed) Final Date: 17 December 2023 11:20
[2023-12-17] MEDS: METOPROLOL SUCCINATE (ER) 50 MG TAB.ER.24H PO SCH (12:38)
--- NOTE | 2023-12-17 13:31 | P.HPIM ---
History of Present Illness H&P Date: 12/17/23 History of present illness; patient is 88-year-old lady with past medical significant for atrial fibrillation on Eliquis who was brought to the ER for transient visual loss. Patient states she was all right yesterday evening when while using her tablet, she noticed that she could not see well in her right eye, that episode lasted for around 10 minutes and patient gradually regained her vision. There was no complaint of any weakness of any extremity. No complaint of slurred speech. There was no complaint of any jerking or any extremity. Patient did not lose her consciousness. In the morning when patient woke up she found her right eye to be bloodshot, there was no complaint of any blurred vision or any vision loss. Patient went to her associate manager who sent her to the ER Initial lab work done in the ER showed WBC 6, hemoglobin 13.2, platelet count 152, sodium 139, potassium 5.1, BUN 20, creatinine 0.69, calcium 9.2, bilirubin 1.5, AST 70, total protein 8.1 EKG done in the ER showed heart rate of , no ST segment elevation or depression seen, no T-wave inversions seen. CT head done showed no acute intracranial process CTA head and neck done showed moderate 50% stenosis of left ICA just above the carotid bulb, 30% stenosis at the left ICA origin, mild 25% stenosis of right IC A Patient admitted to internal medicine service REVIEW OF SYSTEMS: CONSTITUTIONAL: No fever, no malaise, no fatigue. HEENT: No recent visual problems or hearing problems. Denied any sore throat. CARDIOVASCULAR: No chest pain, orthopnea, PND, no palpitations, no syncope. PULMONARY: No shortness of breath, no cough, no hemoptysis. GASTROINTESTINAL: No diarrhea, no nausea, no vomiting, no abdominal pain. NEUROLOGICAL: No headaches, no weakness, no numbness. HEMATOLOGICAL: Denies any bleeding or petechiae. GENITOURINARY: Denies any burning micturition, frequency, or urgency. MUSCULOSKELETAL/RHEUMATOLOGICAL: Denies any joint pain, swelling, or any muscle pain. ENDOCRINE: Denies any polyuria or polydipsia. The rest of the 14-point review of systems is negative. PHYSICAL EXAMINATION: GENERAL: The patient is alert and oriented x3, not in any acute distress. Well developed, well nourished. HEENT: Pupils are round and equally reacting to light. EOMI. No scleral icterus. No conjunctival pallor. Normocephalic, atraumatic. No pharyngeal erythema. No thyromegaly. CARDIOVASCULAR: S1 and S2 present. No murmurs, rubs, or gallops. PULMONARY: Chest is clear to auscultation, no wheezing or crackles. ABDOMEN: Soft, nontender, nondistended, normoactive bowel sounds. No palpable o rganomegaly. MUSCULOSKELETAL: No joint swelling or deformity. EXTREMITIES: No cyanosis, clubbing, or pedal edema. NEUROLOGICAL: Gross neurological examination did not reveal any focal deficits. SKIN: No rashes. Assessment and plan Transient vision loss TIA History of atrial fibrillation Hypothyroidism Monitor vital signs Monitor CBC Monitor CMP Continue telemetry monitoring Continue neurochecks Ordered 2D echo Resume Eliquis Hold losartan, Lasix for now Continue aspirin pravastatin Neurology consult Labs and medication were reviewed.. Continue same treatment. Continue with symptomatic treatment. Resume home medication. Monitor labs and vitals. DVT and GI prophylaxis. Further recommendations as per clinical course of the patient Dictation was produced using [employer] dictation software. please excuse any grammatical, word or spelling errors. Past Medical History Past Medical History: Atrial Fibrillation, Asthma, GERD/Reflux, Hyperlipidemia, Hypertension Additional Past Medical History / Comment(s): SOB,hiatal hernia,steroid Sep 2017, cateracts bilat History of Any Multi-Drug Resistant Organisms: None Reported Past Surgical History: Adenoidectomy, Cholecystectomy, Hernia Repair, Hysterectomy, Joint Replacement, Pacemaker, Tonsillectomy Additional Past Surgical History / Comment(s): hiatal hernia,[employer] Pacemaker left chest,brittany carpel tunnel,breast bx,left total knee,JASMIN left femur,lasik brittany eyes,brittany cataracts,lesion removed from tongue,brittany inguinal hernia repair Past Anesthesia/Blood Transfusion Reactions: No Reported Reaction Type of Cardiac Device: Permanent Pacemaker Device Placement Date:: 2007,battery replaced Past Psychological History: No Psychological Hx Reported Smoking Status: Never smoker Past Alcohol Use History: Occasional Past Drug Use History: None Reported - Past Family History Mother Family Medical History: Cancer Additional Family Medical History / Comment(s): lymphoma Father Family Medical History: Cancer Additional Family Medical History / Comment(s): bone Sister(s) Family Medical History: Cancer Additional Family Medical History / Comment(s): lung Medications and Allergies Home Medications Medication Instructions Recorded Confirmed Type Albuterol Inhaler [Ventolin Hfa 1 - 2 puff INHALATION RT-QID PRN 12/03/17 12/16/23 History Inhaler] Ezetimibe [Zetia] 10 mg PO DAILY 12/03/17 12/16/23 History Furosemide [Lasix] 40 mg PO DAILY 12/03/17 12/16/23 History Levothyroxine Sodium [Synthroid] 50 mcg PO DAILY 12/03/17 12/16/23 History Montelukast Sodium [Singulair] 10 mg PO HS 12/03/17 12/16/23 History Potassium Chloride [Klor-Con 20] 20 meq PO BID 12/03/17 12/16/23 History Pravastatin Sodium [Pravachol] 40 mg PO HS 12/03/17 12/16/23 History Sertraline HCl [Zoloft] 50 mg PO DAILY 12/03/17 12/16/23 History ALPRAZolam [Xanax] 0.5 mg PO HS 12/16/23 12/16/23 History Apixaban [Eliquis] 2.5 mg PO BID 12/16/23 12/16/23 History Calcium Carbonate/Vitamin D3 1 tab PO DAILY 12/16/23 12/16/23 History [Calcium 500 mg-Vit D3 5 mcg (200 Unit)] Donepezil [Aricept] 5 mg PO HS 12/16/23 12/16/23 History Famotidine [Pepcid] 20 mg PO HS 12/16/23 12/16/23 History Ferrous Sulfate [Feosol] 650 mg PO HS 12/16/23 12/16/23 History Fluticasone Nasal [place] [Flonase 1 spray EA NOSTRIL BID 12/16/23 12/16/23 History Nasal [place]] Fluticasone Propion/Salmeterol 1 puff INHALATION RT-BID 12/16/23 12/16/23 History [Wixela 250-50 Inhub] Losartan [Cozaar] 25 mg PO DAILY 12/16/23 12/16/23 History Magnesium Oxide [Mag-Ox] 250 mg PO BID 12/16/23 12/16/23 History Metoprolol Succinate (ER) [Toprol 50 mg PO DAILY 12/16/23 12/16/23 History Xl] Spironolactone [Aldactone] 12.5 mg PO DAILY 12/16/23 12/16/23 History Ubidecarenone [Coenzyme Q10] 100 mg PO DAILY 12/16/23 12/16/23 History Zolpidem [Ambien] 10 mg PO HS PRN 12/16/23 12/16/23 History Allergies Allergy/AdvReac Type Severity Reaction Status Date / Time atorvastatin [From Lipitor] Allergy Unknown Verified 12/16/23 16:52 cephalexin [From Keflex] Allergy Unknown Verified 12/16/23 16:52 Physical Exam Vitals: Vital Signs Temp Pulse Pulse Resp BP BP Pulse Ox 12/17/23 07:35 97.4 F L 70 17 148/82 96 12/17/23 01:41 97.5 F L 68 16 107/61 95 12/16/23 22:34 97.6 F 70 18 151/71 97 12/16/23 20:50 70 16 127/75 97 12/16/23 18:00 72 18 158/78 99 12/16/23 16:51 73 18 159/90 96 12/16/23 14:20 98.3 F 66 18 108/60 94 L Intake and Output 12/16/23 12/17/23 12/17/23 22:59 06:59 14:59 Intake Total 236 Balance 236 Intake: Oral 236 Other: # Voids 1 2 Weight 57.606 kg Results CBC & Chem 7: 12/16/23 15:20 12/16/23 15:20 Labs: Abnormal Lab Results - Last 24 Hours (Table) 12/16/23 12/16/23 12/16/23 Range/Units 15:20 15:20 16:33 Lymphocytes # 0.9 L (1.0-4.8) k/uL BUN 28 H (7-17) mg/dL Total Bilirubin 1.5 H (0.2-1.3) mg/dL AST 70 H (14-36) U/L Alkaline Phosphatase 34 L (38-126) U/L C-Reactive Protein 1.2 H (<1.0) mg/dL Thrombosis Risk Factor Assmnt - Choose All That Apply Any of the Below Risk Factors Present?: No Other Risk Factors: No Other congenital or acquired thrombophilia - If yes, enter type in comment: No Thrombosis Risk Factor Assessment Level: Very Low Risk
[2023-12-17 22:49] VITALS: PULSE 70
[2023-12-18] MEDS: LEVOTHYROXINE 50 MCG TAB PO SCH (06:04)
[2023-12-18 08:09] VITALS: BP 108/64; RESP 17; TEMP 97.6
[2023-12-18] MEDS: EZETIMIBE 10 MG TAB PO SCH (09:27)
[2023-12-18] MEDS: SERTRALINE 50 MG TAB PO SCH (09:27)
[2023-12-18] MEDS: CALCIUM CARB-VIT D 500 MG-5 MCG TAB PO SCH (09:28)
[2023-12-18 09:40] LABS: Basophils # (A) 0.06 X 10*3/uL (0.00-0.10); Basophils % (A) 1.4 %; Eosinophils # (A) 0.43 X 10*3/uL (0.04-0.35); HCT 35.7 % (37.2-46.3); HGB 11.7 g/dL (12.0-15.0); Lymphocytes # (A) 1.09 X 10*3/uL (0.90-5.00); Lymphocytes % (A) 25.5 %; MCH 32.3 pg (27.0-32.0); MCHC 32.8 g/dL (32.0-37.0); MCV 98.6 FL (80.0-97.0); Mean Platelet Volume 10.1 FL (9.5-12.2); Monocytes # (A) 0.44 X 10*3/uL (0.20-1.00); Monocytes % (A) 10.3 %; NRBC Per 100 WBC 0 X 10*3/uL (0.00-0.01); Neutrophils # (A) 2.24 X 10*3/uL (1.80-7.70); Neutrophils % (A) 52.3 %; Platelet Count 131 X 10*3/uL (140-440); RBC 3.62 X 10*6/uL (4.10-5.20); RDW 13.8 % (11.5-14.5); WBC 4.28 X 10*3/uL (4.50-10.00)
[2023-12-18 10:04] LABS: BUN/Creat Ratio 37.71 Ratio (12.00-20.00); Blood Urea Nitrogen 26.4 mg/dL (9.0-27.0); Chloride 107 mmol/L (96-109); Glucose 91 mg/dL (70-110); Potassium 4.6 mmol/L (3.5-5.5); Sodium 140 mmol/L (135-145)
[2023-12-18 10:05] LABS: ALT 22 U/L (8-44); AST 41 U/L (13-35); Albumin 3.6 g/dL (3.8-4.9); Albumin/Globulin Ratio 1.29 Ratio (1.60-3.17); Alkaline Phosphatase 36 U/L (41-126); Calcium 8.9 mg/dL (8.7-10.3); Carbon Dioxide 23.3 mmol/L (21.6-31.8); Globulin 2.8 g/dL (1.6-3.3); Total Bilirubin 0.6 mg/dL (0.3-1.2); Total Protein 6.4 g/dL (6.2-8.2)
--- NOTE | 2023-12-18 10:23 | CT ---
EXAMINATION TYPE: CT brain wo con CT DLP: 1090.4 mGycm, Automated exposure control for dose reduction was used. DATE OF EXAM: 12/18/2023 9:56 AM COMPARISON: CT head 12/16/2023. CLINICAL INDICATION:Female, 88 years old with history of right vision loss. cva, Right vision loss, CVA TECHNIQUE: Brain: Axial CT images of the brain were obtained with coronal and sagittal reformats created and rev iewed. Contrast used: None. Oral contrast used: None. FINDINGS: Extra-axial spaces: No abnormal extra-axial fluid collections. Ventricular system: Ventricles appear dilated in proportion to the degree of cerebral atrophy. Cerebral parenchyma: No increased attenuation to suggest acute intraparenchymal hemorrhage. The gra y-white matter interface appears maintained. Moderate generalized brain atrophy. Scattered hypoatte nuating areas are seen within the cerebral white matter, nonspecific but most often seen with chronic microvascular ischemic changes; moderate in degree. Cerebellum: No acute abnormality. Mass effect: No evidence of mass effect or midline shift. Intracranial vasculature: Atherosclerotic calcifications of the larger arteries near the skull base. Soft tissues: No acute or concerning abnormality. Visualized orbits: Orbital contents appear grossly intact. Calvarium/osseous structures: No evidence of calvarial fracture. Paranasal sinuses and mastoid air cells: Mild scattered paranasal sinus mucosal thickening. No signif icant fluid. Moderate S-shaped nasal septal deviation. MRI is more sensitive for detecting acute processes such as infarct, and may be considered if clinica lly warranted. IMPRESSION: Overall stable intracranial findings. No CT evidence of an acute intracranial abnormality.
--- NOTE | 2023-12-18 12:08 | P.DS ---
Providers Date of admission: 12/16/23 16:43 Expected date of discharge: 12/18/23 Attending physician: Brett Hinton MD Consults: 12/16/23 16:36 Consult Physician Stat Consulting Provider: Edmundo Caldera Consult Reason/Comments: monocular vision loss Do you want consulting provider notified?: Already Contacted Primary care physician: [facility] Course: * 88-year-old lady with past medical significant for atrial fibrillation on Eliquis who was brought to the ER for transient visual loss. Patient states she was all right yesterday evening when while using her tablet, she noticed that she could not see well in her right eye, that episode lasted for around 10 minutes and patient gradually regained her vision. There was no complaint of any weakness of any extremity. No complaint of slurred speech. There was no complaint of any jerking or any extremity. Patient did not lose her consciousness. In the morning when patient woke up she found her right eye to be bloodshot, there was no complaint of any blurred vision or any vision loss. * Patient went to her steno pool supervisor who sent her to the ER * Initial lab work done in the ER showed WBC 6, hemoglobin 13.2, platelet count 152, sodium 139, potassium 5.1, BUN 20, creatinine 0.69, calcium 9.2, bilirubin 1.5, AST 70, total protein 8.1 * EKG done in the ER showed heart rate of , no ST segment elevation or depression seen, no T-wave inversions seen. * CT head done showed no acute intracranial process * CTA head and neck done showed moderate 50% stenosis of left ICA just above the carotid bulb, 30% stenosis at the left ICA origin, mild 25% stenosis of right ICA * 12/18/23 : Patient seen and evaluated bedside, CT head negative, patient was cleared for discharge by neurology. Continue aspirin and Eliquis. Vision is back to normal PHYSICAL EXAMINATION: GENERAL: The patient is alert and oriented x3, not in any acute distress. Well developed, well nourished. HEENT: Pupils are round and equally reacting to light. EOMI. CARDIOVASCULAR: S1 and S2 present. No murmurs, rubs, or gallops. PULMONARY: Chest is clear to auscultation, no wheezing or crackles. ABDOMEN: Soft, nontender, nondistended, normoactive bowel sounds. No palpable organomegaly. MUSCULOSKELETAL: No joint swelling or deformity. EXTREMITIES: No cyanosis, clubbing, or pedal edema. NEUROLOGICAL: Gross neurological examination did not reveal any focal deficits. SKIN: No rashes. Assessment and plan Transient vision loss and paralysis fugax Focal stenosis of V2 on CTA Left eyes subconjunctival hemorrhage History of bilateral cataract History of atrial fibrillation History of bilateral chronic narrow angle glaucoma S/p pacemaker in place * In regards to transient visual impairment, patient had CT head, CT angio head and neck done which was negative for acute intracranial process no large vessel occlusion noted in the head, CT angio of the neck does show moderate stenosis of left ICA 30% stenosis of left ICA origin. Continue patient on neurochecks * Neurology consulted, patient does have pacemaker in place able to do MRI. * Continue aspirin, Eliquis, Synthyroid. * Need physical therapy Occupational Therapy evaluation * Patient at baseline discharge home Patient Condition at Discharge: Good Plan - Discharge Summary Discharge Rx Participant: No New Discharge Prescriptions: New Aspirin 81 mg PO DAILY 30 Days #30 tab Continue Albuterol Inhaler [Ventolin Hfa Inhaler] 1 - 2 puff INHALATION RT-QID PRN PRN Reason: Shortness Of Breath Potassium Chloride [Klor-Con 20] 20 meq PO BID Montelukast Sodium [Singulair] 10 mg PO HS Furosemide [Lasix] 40 mg PO DAILY Pravastatin Sodium [Pravachol] 40 mg PO HS Levothyroxine Sodium [Synthroid] 50 mcg PO DAILY Ezetimibe [Zetia] 10 mg PO DAILY Sertraline HCl [Zoloft] 50 mg PO DAILY Magnesium Oxide [Mag-Ox] 250 mg PO BID Fluticasone Nasal [place] [Flonase Nasal [place]] 1 spray EA NOSTRIL BID Zolpidem [Ambien] 10 mg PO HS PRN PRN Reason: Insomnia Donepezil [Aricept] 5 mg PO HS Famotidine [Pepcid] 20 mg PO HS Apixaban [Eliquis] 2.5 mg PO BID ALPRAZolam [Xanax] 0.5 mg PO HS Losartan [Cozaar] 25 mg PO DAILY Ubidecarenone [Coenzyme Q10] 100 mg PO DAILY Ferrous Sulfate [Iron (65 MG Elemental)] 650 mg PO HS Calcium Carbonate/Vitamin D3 [Calcium 500 mg-Vit D3 5 mcg (200 Unit)] 1 tab PO DAILY Spironolactone [Aldactone] 12.5 mg PO DAILY Metoprolol Succinate (ER) [Toprol XL] 50 mg PO DAILY Fluticasone Propion/Salmeterol [[place]ela 250-50 Inhub] 1 puff INHALATION RT-BID Discharge Medication List Albuterol Inhaler [Ventolin Hfa Inhaler] 1 - 2 puff INHALATION RT-QID PRN 12/03/17 [History] Ezetimibe [Zetia] 10 mg PO DAILY 12/03/17 [History] Furosemide [Lasix] 40 mg PO DAILY 12/03/17 [History] Levothyroxine Sodium [Synthroid] 50 mcg PO DAILY 12/03/17 [History] Montelukast Sodium [Singulair] 10 mg PO HS 12/03/17 [History] Potassium Chloride [Klor-Con 20] 20 meq PO BID 12/03/17 [History] Pravastatin Sodium [Pravachol] 40 mg PO HS 12/03/17 [History] Sertraline HCl [Zoloft] 50 mg PO DAILY 12/03/17 [History] ALPRAZolam [Xanax] 0.5 mg PO HS 12/16/23 [History] Apixaban [Eliquis] 2.5 mg PO BID 12/16/23 [History] Calcium Carbonate/Vitamin D3 [Calcium 500 mg-Vit D3 5 mcg (200 Unit)] 1 tab PO DAILY 12/16/23 [History] Donepezil [Aricept] 5 mg PO HS 12/16/23 [History] Famotidine [Pepcid] 20 mg PO HS 12/16/23 [History] Ferrous Sulfate [Iron (65 MG Elemental)] 650 mg PO HS 12/16/23 [History] Fluticasone Nasal [place] [Flonase Nasal [place]] 1 spray EA NOSTRIL BID 12/16/23 [History] Fluticasone Propion/Salmeterol [[place] 250-50 Inhub] 1 puff INHALATION RT-BID 12/16/23 [History] Losartan [Cozaar] 25 mg PO DAILY 12/16/23 [History] Magnesium Oxide [Mag-Ox] 250 mg PO BID 12/16/23 [History] Metoprolol Succinate (ER) [Toprol XL] 50 mg PO DAILY 12/16/23 [History] Spironolactone [Aldactone] 12.5 mg PO DAILY 12/16/23 [History] Ubidecarenone [Coenzyme Q10] 100 mg PO DAILY 12/16/23 [History] Zolpidem [Ambien] 10 mg PO HS PRN 12/16/23 [History] Aspirin 81 mg PO DAILY 30 Days #30 tab 12/18/23 [Rx] Follow up Appointment(s)/Referral(s): Nonstaff,Physician [REFERRING] - 1-2 days Discharge Disposition: HOME SELF-CARE
--- NOTE | 2023-12-18 14:15 | P.PN ---
Subjective Progress Note Date: 12/18/23 I am following-up with the patient and she feels back to baseline. The redness of the eye has cleared up. Denies any new neurological issues. Objective - Vital Signs Vital signs: Vital Signs Temp 97.6 F 12/18/23 07:45 Pulse 70 12/18/23 07:45 Resp 17 12/18/23 07:45 BP 108/64 12/18/23 07:45 Pulse Ox 93 L 12/18/23 07:45 FiO2 Intake & Output 12/17/23 12/18/23 12/18/23 18:59 06:59 18:59 Intake Total 472 118 Balance 472 118 Intake: Oral 472 118 Other: Voiding Method Toilet # Voids 1 0 # Bowel Movements 1 - Exam GENERAL: The patient is lying in bed and is not in acute distress. NEUROLOGICAL: Higher mental function: The patient is awake, alert, oriented to self, place and time. Patient is following commands. No aphasia and no neglect. Cranial nerves: The pupils are round, equal and reactive to light. Visual [place] are full to confrontation throughout. Extraocular movement is intact no nystagmus is noted. Facial sensation is normal to touch throughout. The facial strength is normal throughout. Hearing is mildly decreasedl bilaterally to hand rub. Tongue is midline and moved [id number] without any difficulty. No dysarthria is noted. Shoulder shrug is normal bilaterally. Motor: The strength is 5 over 5 throughout. Normal tone and bulk. Cerebellum: Normal finger to nose bilaterally. Sensation: Sensation is normal to touch throughout. Reflexes (right/left): Ankles are 1+ bilaterally. Otherwise 2+ throughout. Plantars are downgoing bilaterally. Some of the workup during his hospital visit consisted of: ESR is 22 CRP is 1.2 Hemoglobin A1c is 5.2 TSH is 1.87 Lipid panel is a triglyceride 79, cholesterol is 142, LDL 71 [address] HDL is [address] of the head is reported as no acute intracranial process. Nonspecific white matter changes, likely secondary due to chronic small vessel ischemic disease. I personally reviewed the CT of the head and I agree there is no acute or subacute stroke. CT angiography of the head is reported as no large vessel intracranial artery occlusion, significant stenosis or aneurysm changes seen. Anatomic variation with hypoplastic V4 segment left vertebral artery and persistent origin right FRAMEMAN CT angiography of the neck is reported as retropharyngeal course of the carotid bifurcation and proximal ICAs. Moderate 50% stenosis left ICA just above the carotid bulb. 30% stenosis of the left ICA origin. Mild, 25 proximal right ICA stenosis. Severe focal stenosis at V2 segment upper left vertebral artery. Subsequent early takeoff of the left pica from the V3 segment. Repeat CT of the head today was reported as overall stable intracranial finding. No CT evidence of acute intracranial abnormality. 2-D echo was reported as normal left ventricle systolic function. To get the mitral valve leaflet. Moderate mitral regurgitation. Severe pulmonary hypertension. The pulmonary artery systolic pressures 68 mmHg. Poorly visualized aortic valve. Possible transcatheter valve with acceptable gradient. Moderate severe tricuspid regurgitation. Patient wire was seen in the right atrium and the right ventricle. Severe biatrial enlargement. - Labs CBC & Chem 7: 12/18/23 06:06 12/18/23 06:06 Labs: Abnormal Lab Results - Last 24 Hours (Table) 12/18/23 12/18/23 Range/Units 06:06 06:06 WBC 4.28 L (4.50-10.00) X 10*3/uL RBC 3.62 L (4.10-5.20) X 10*6/uL Hgb 11.7 L (12.0-15.0) g/dL Hct 35.7 L (37.2-46.3) % MCV 98.6 H (80.0-97.0) FL MCH 32.3 H (27.0-32.0) pg Plt Count 131 L (140-440) X 10*3/uL Eosinophils # 0.43 H (0.04-0.35) X 10*3/uL BUN/Creatinine Ratio 37.71 H (12.00-20.00) Ratio AST 41 H (13-35) U/L Alkaline Phosphatase 36 L (41-126) U/L Albumin 3.6 L (3.8-4.9) g/dL Albumin/Globulin Ratio 1.29 L (1.60-3.17) Ratio Assessment and Plan Assessment: This is an 88-year-old woman with history of A. fib on eliquis s/p pacemaker, b /l cataract surgery who presents because this past Wednesday she had the sudden onset right visual loss in the afternoon lasting for 10 minutes then a few hours later she noticed her right eye it was read. 6 weeks ago she had an episode in which she felt the left eye was also read in discoloration but denies any visual loss. Patient denies of any headache focal deficits. She was evaluated by her auto design checker who felt she has supple contactable hemorrhage and wanted further evaluation to rule out stroke. Amaurosis fugax of right eye then follow by redness of eye: Has subconjuctival hemorrhage: Unsure exact etiology is truly due to stroke vs purely eye issue Severe focal sensosis of V2 on CTA Has history of left subconjuctival hemorrhage History of bilateral cataract surgery bilaterally History of bilateral chronic narrow angle glaucoma History of atrial fibrillation on eliquis s/p pacemaker Plan: Patient is resumed on her home dose of Eliquis 2.5 mg bid daily. In addition I added aspirin 81 mg daily. Patient is ALLERGIC to atorvastatin. Patient is placed on pravastatin 40 mg daily at bedtime by the primary team Cannot obtain MRI since has pacemaker and saw compatible Patient had too CT of the head which were unremarkable for acute subacute ischemia. Continue neuro checks Cardiac monitoring 2-D echo was reported as normal left ventricle systolic function. Moderate mitral regurgitation. Severe pulmonary hypertension. The pulmonary artery systolic pressures 68 mmHg. Poorly visualized aortic valve. Possible transcatheter valve with acceptable gradient. Moderate severe tricuspid regurgitation. Patient wire was seen in the right atrium and the right ventricle. Severe biatrial enlargement. Recommend the patient to wall follow-up with reconciliation specialist as an outpatient for further evaluation and treatment. Patient states that she's having ongoing chronic numbness of her lower extremity and feels its cold I recommended an EMG with nerve conduction study as an outpatient for further evaluation and to follow up with a neurologist as outpati ent. Also consider arterial and possible venous duplex of the lower extremity but will defer that to the primary team. We'll defer the rest of the medical management the primary team For DVT prophylaxis she is on Eliquis Upon discharge recommend that patient follow up with her eyelet maker as well as follow up with a neurologist as an outpatient within 1-2 weeks. The plan is discussed with patient and her nurse. Time with Patient: Less than 30
== END 2023-12-18 12:53 | disposition home or self-care (01) ==
LOC: EC 14:15 → 6NMEDSUR 16:43
PROVIDERS: ADMIT Internal Medicine; ATTEND Internal Medicine
DX: G45.3 Amaurosis fugax (principal); H11.32 Conjunctival hemorrhage, left eye; H40.2290 Chronic angle-closure glaucoma, unspecified eye, stage unspecified; I48.91 Unspecified atrial fibrillation; E03.9 Hypothyroidism, unspecified; K21.9 Gastro-esophageal reflux disease without esophagitis; E78.5 Hyperlipidemia, unspecified; I10 Essential (primary) hypertension; Z86.73 Personal history of transient ischemic attack (TIA), and cerebral infarction without residual deficits; Z95.0 Presence of cardiac pacemaker; Z98.42 Cataract extraction status, left eye; Z98.41 Cataract extraction status, right eye; Z79.01 Long term (current) use of anticoagulants; Z79.890 Hormone replacement therapy; Z79.899 Other long term (current) drug therapy; Z88.1 Allergy status to other antibiotic agents
CPT/HCPCS: 99285; 36415; 94640 ×3; 93005; 93306; 80061; 80053 ×2; 85652; 84443; 85025 ×2; 85610; 86140; 83036; 70496; 70450 ×2; 70498; G0378 ×3; Q9967